=== PATIENT | male | born 2000 | race Caucasian/White ===

== ENCOUNTER 2018-01-08 21:23 | Emergency (ER) | payer OTHER ==
--- NOTE | 2018-01-08 21:49 | ED ANKLE/FOOT INJURY COMPLAINT ---
History of Present Illness General Chief Complaint: Plantar Puncture Wound Stated Complaint: "GLASS WENT THROUGH RT PLANTAR" Source: patient Exam Limitations: no limitations Vital Signs & Intake/Output Vital Signs & Intake/Output Vital Signs Date Time Temp Pulse Resp B/P B/P Pulse O2 O2 Flow FiO2 Mean Ox Delivery Rate 01/08 2320 99.1 106 18 135/75 96 Room Air 01/08 2131 99.7 116 20 132/85 97 Room Air Allergies Coded Allergies: NO KNOWN ALLERGIES (01/08/18) Triage Note: PT TO TRIAGE C/O R FOOT LAC FROM BROKEN GLASS IN [employer] TRUCK. PT HAS SNEAKER ON IN TRIAGE STATING "IT STOPPED BLEEDING IT'S NOT TOO BIG." UNVISUALIZED BY THIS RN. PT UNSURE OF LAST TETANUS. Triage Nurses Notes Reviewed? yes Occurred: just prior to arrival Duration: hour(s):, day(s): Timing: single episode today Severity: moderate Pain/Injury Location: Right: Foot. HPI: 17yo male presents to ED complaining of puncture wound to right foot occurring prior to arrival. Patient states that he was moving boxes and there was glass on the floor. Patient states that a piece of glass went through the campus part of his sneaker and cut his right foot. Patient took the piece of glass out prior to arrival. He estimates that less than 1 cm went into his foot. Patient was able to control bleeding at home prior to arrival. (Karmen HARP,Deedee Agosto) Past History Travel History Traveled to [place] past 21 day No Medical History Any Pertinent Medical History? none Neurological: NONE EENT: NONE Cardiovascular: NONE Respiratory: NONE Gastrointestinal: NONE Hepatic: NONE Renal: NONE Musculoskeletal: NONE Psychiatric: NONE Endocrine: NONE Blood Disorders: NONE Cancer(s): NONE HOUSEHOLD CHORES/Reproductive: NONE Influenza Vaccine: 05/23/12 Surgical History Surgical History: non-contributory Psychosocial History What is your primary language Greek Tobacco Use: Never used Family History Hx Contributory? No (Deedee Sanchez) Review of Systems Review of Systems Constitutional: Reports: no symptoms. EENTM: Reports: no symptoms. Respiratory: Reports: no symptoms. Cardiovascular: Reports: no symptoms. GI: Reports: no symptoms. Genitourinary: Reports: no symptoms. Musculoskeletal: Reports: see HPI. Skin: Reports: see HPI. Neurological/Psychological: Reports: no symptoms. Hematologic/Endocrine: Reports: no symptoms. Immunologic/Allergic: Reports: no symptoms. All Other Systems: Reviewed and Negative (Karmen HARP,Deedee Agosto) Physical Exam Physical Exam General Appearance: well developed/nourished, no apparent distress, alert, awake Head: atraumatic, normal appearance Eyes: Bilateral: normal appearance. Ears, Nose, Throat: hearing grossly normal Neck: normal inspection, supple, full range of motion Cardiovascular/Respiratory: normal peripheral pulses, no respiratory distress Back: normal inspection, normal range of motion Leg/Knee/Thigh Left: normal range of motion, normal inspection Leg/Knee/Thigh Right: normal range of motion, normal inspection Ankle Left: normal inspection, normal range of motion Ankle Right: normal inspection, normal range of motion Foot Left: normal inspection, normal range of motion Foot Right: 0.75cm linear laceration to medial dorsal foot, no foreign body visualized, ROM intact Neuro/Vascular: normal motor function, normal sensation Tendon: normal tendon function Psychiatric: awake, alert, oriented x 3 Skin: laceration as mentioned above (Karmen HARP,Deedee Agosto) Progress Differential Diagnosis: fracture, sprain, laceration, foreign body Plan of Care: Orders Procedure Date/time Status XRY-FOOT COMPLETE, RIGHT 01/08 2129 Active X-ray shows no evidence of foreign body. Patient's wound was explored, there is a low probability for foreign body and no foreign body was visualized removed. Wound was closed using 2 stitches by PA student, patient tolerated the procedure well. Patient is unsure of last tetanus vaccine however mother reports that he was up-to-date on immunizations throughout high school. Patient educated on signs and symptoms of skin infection. The patient agrees with the plan of care. He will return in 7-10 days for removal of stitches. Diagnostic Imaging: Viewed by Me: Radiology Read. Discussed w/RAD: Radiology Read. Radiology Impression: PATIENT: ADRI SEN PRESENT AGE: 17 PATIENT ACCOUNT NO: [id number] : 98 LOCATION: [facility] ORDERING PHYSICIAN: Brandon Bolton MD SERVICE DATE: 01/08/18-2128 EXAM TYPE: RAD - XRY-FOOT COMPLETE, R EXAMINATION: XR FOOT, RIGHT CLINICAL INFORMATION: Puncture wound. COMPARISON: None TECHNIQUE: AP, lateral, and oblique views of the right foot. FINDINGS: No radiopaque foreign body. No air in the soft tissue. Bone and joints are normal. IMPRESSION: Normal right foot. No radiopaque foreign body. DICTATED BY: Aron Tuttle MD DATE/TIME DICTATED:2225 INSURANCE ANALYST:LAYA DATE/TIME TRANSCRIBED:01/08/182225 CONFIDENTIAL, DO NOT COPY WITHOUT APPROPRIATE AUTHORIZATION. <Electronically signed in Other Vendor System> SIGNED BY: Aron Tuttle MD 01/08/182229 (Deedee Sanchez) Departure Departure Disposition: HOME OR SELF CARE Condition: Stable Clinical Impression Primary Impression: Laceration Referrals: Milton PEREZ,Frank Sanchez (PCP/Family) Additional Instructions: Return in 7-10 days for removal of stitches. Return sooner if he develops signs and symptoms of infection such as redness, swelling, increasing pain, warmth. Please note that there might be incidental findings in your evaluation that are unrelated to the current emergency department visit. Please notify your primary care doctor about this emergency department visit in order to obtain and review all of the testing performed so that these incidental findings can be monitored as needed. If you had an x-ray performed, please understand that some fractures may not be seen on the initial set of x-rays. If your symptoms persist you might need a repeat set of x-rays to check for such a fracture. If you had a laceration evaluated, please understand that foreign bodies such as glass or wood may not be visible to the naked eye or on plain x-rays. If the wound becomes red, swollen, increasingly more painful or if there is any drainage from the wound, please have it reevaluated by a physician for the possibility of a retained foreign body. If you're unable to follow up as outlined in the discharge instructions please return to the emergency department. Thank you for choosing the [facility] Emergency Department for your care. It was a pleasure to serve you today. Departure Forms: Customer Survey General Discharge Information (Deedee Sanchez) PA/CENTRIFUGAL CHILLER TECHNICIAN Co-Sign Statement Statement: ED Attending supervision documentation- [] I saw and evaluated the patient. I have also reviewed all the pertinent lab results and diagnostic results. I agree with the findings and the plan of care as documented in the PA's/CENTRIFUGAL CHILLER TECHNICIAN's documentation. [X] I have reviewed the ED Record and agree with the PA's/CENTRIFUGAL CHILLER TECHNICIAN's documentation. [] Additions or exceptions (if any) to the PAs/CENTRIFUGAL CHILLER TECHNICIAN's note and plan are summarized below: [] (Che PEREZ,Brandon Edmond) Procedures Laceration/Wound Repair Laceration/Wound Repair: Wound Location: right foot Wound's Depth, Shape: linear Wound Length (cm): 0.75 Wound Explored: no foreign body removed, irrigated extensively, xray is negative for foreign body Irrigated w/ Saline (ccs): 100 Betadine Prep? Yes Anesthesia: 1% lidocaine Volume Anesthetic (ccs): 2 Wound Repaired With: sutures Suture Size/Type: 4:0, nylon Number of Sutures: 2 Sterile Dressing Applied: Yes Tetanus Status: up to date Progress: Procedure performed by PA student with my direct supervision. Patient tolerated the procedure well. (Karmen HARP,Deedee Agosto)
--- NOTE | 2018-01-08 22:30 | RADIOLOGY REPORT ---
EXAMINATION: XR FOOT, RIGHT CLINICAL INFORMATION: Puncture wound. COMPARISON: None TECHNIQUE: AP, lateral, and oblique views of the right foot. FINDINGS: No radiopaque foreign body. No air in the soft tissue. Bone and joints are normal. IMPRESSION: Normal right foot. No radiopaque foreign body.
[2018-01-08 23:20] VITALS: BP 135/75
== END 2018-01-08 23:27 ==
LOC: ERH 21:23
DX: S91.311A Laceration without foreign body, right foot, initial encounter (principal); W25.XXXA Contact with sharp glass, initial encounter; Y92.89 Other specified places as the place of occurrence of the external cause; Y93.89 Activity, other specified
CPT/HCPCS: 73630-RT; J2001